=== PATIENT | male | born 1995 | race African-American/Black ===

== ENCOUNTER 2018-12-29 18:58 | Emergency (ER) | payer OTHER ==
[~2018-12-29] VITALS: Ht 188 cm; Wt 95.5 kg
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
[2018-12-29] MEDS ORDERED: CYCLOBENZAPRINE 10 MG TAB PO ONE (19:45)
[2018-12-29] MEDS ORDERED: KETOROLAC 60 MG/2 ML VIAL (J1885) IM ONE (19:45)
[2018-12-29] MEDS ORDERED: IBUP-1114 PO (19:47)
[2018-12-29] MEDS ORDERED: CYCL10TA PO (19:47)
[2018-12-29 21:00] VITALS: BP 124/69
[2018-12-29] MEDS ORDERED: CYCLOBENZAPRINE 10 MG TAB PO SCH (21:15)
== END 2018-12-29 21:20 | disposition home or self-care (01) ==
LOC: EDBD 18:58 → M ED 18:58
DX: S06.0X0A Concussion without loss of consciousness, initial encounter (principal); S16.1XXA Strain of muscle, fascia and tendon at neck level, initial encounter; V49.49XA Driver injured in collision with other motor vehicles in traffic accident, initial encounter; Y92.410 Unspecified street and highway as the place of occurrence of the external cause; Z88.5 Allergy status to narcotic agent
CPT/HCPCS: 70450; 72125; 96372; 99284; J1885

== ENCOUNTER → 2019-04-28 | Outpatient (CLI) | payer OTHER ==
[~2019-04-28] MED LIST: CYCL10TA PO; IBUP-1114 PO
--- NOTE | 2019-04-28 18:06 | REP ---
Clinical: Pain. Technique: AP and lateral views of the left tibia / fibula. Findings: No acute fracture dislocation. Residual orthopedic hardware identified within the distal tibial metaphysis from prior fixation. No subcutaneous emphysema. Impression: No acute fracture or dislocation. Evidence for prior fixation at the ankle. Electronically Signed by Ernesto Thacker MD 04/28/2019 05:57 P
--- NOTE | 2019-04-28 18:08 | REP ---
Clinical: Pain. History of prior fixation. Technique: AP, lateral, bilateral oblique views of the left ankle. Findings: Mild generalized soft tissue swelling is appreciated. The shaft of a fixation screws identified with in the tibial metaphysis with the distal tip just reaching the cortex along the medial aspect of the tibial metaphysis. No acute fracture dislocation. Small corticated presumed old fracture fragment at the tip of the medial malleolus noted. Impression: Soft-tissue swelling. Residual portion of the fixation screw identified within the tibial metaphysis. No acute fracture or dislocation. Electronically Signed by Ernesto Thacker MD 04/28/2019 06:00 P
== END ==
LOC: M LRY 17:34
PROVIDERS: ATTEND Physician Assistant
DX: M25.572 Pain in left ankle and joints of left foot (principal); Z87.81 Personal history of (healed) traumatic fracture
CPT/HCPCS: 73590; 73610; G0463